=== PATIENT | male | born 1950 | race Caucasian/White ===

== ENCOUNTER 2017-02-02 15:49 | Emergency (ER) | payer OTHER ==
[2017-02-02 17:17] LABS: HEMOGLOBIN 12.2 gm/dl (14.0-17.5); RED BLOOD COUNT 3.03 M/UL (4.20-5.50); WHITE BLOOD COUNT 12.1 K/UL (4.5-11.0)
[2017-02-02 17:32] LABS: BUN/CREATININE RATIO 27 (0-10)
[2017-03-15] MEDS ORDERED: ZOCOR20 MG PO (20:14)
[2017-03-15] MEDS ORDERED: ZYLOPRIM 100 M100 MG PO (20:15)
[2017-03-15] MEDS ORDERED: ASPIR 8181 MG PO (20:15)
[2017-03-15] MEDS ORDERED: NORVASC 5 MG TAB5 MG PO (20:15)
[2017-03-15] MEDS ORDERED: VITAMIN B-1000 MCG/M SQ (20:16)
[2017-03-15] MEDS ORDERED: FAMOTIDINE20 MG PO (20:16)
[2017-03-15] MEDS ORDERED: LASIX 40 MG TAB40 MG PO (20:17)
[2017-03-15] MEDS ORDERED: AMARYL1 MG PO (20:17)
[2017-03-15] MEDS ORDERED: HYDREA CAP 500500 MG PO (20:18)
[2017-03-15] MEDS ORDERED: HYDRALAZINE HCL50 MG PO (20:18)
[2017-03-15] MEDS ORDERED: LEVOTHYROXINE50 MCG PO (20:19)
[2017-03-15] MEDS ORDERED: IMDUR ER TAB 3030 MG PO (20:19)
[2017-03-15] MEDS ORDERED: GLUCOPHAGE1000 MG PO (20:20)
[2017-03-15] MEDS ORDERED: PRINIVIL20 MG PO (20:20)
[2017-03-15] MEDS ORDERED: TOPROL XL100 MG PO (20:20)
[2017-03-15] MEDS ORDERED: COUMADIN 1MG TAB1 MG PO (20:21)
[2017-03-21] MEDS ORDERED: NORCO 5-325 TA1 EACH PO (09:54)
== END 2017-02-02 22:15 | disposition short-term general hospital (02) ==
LOC: ER1 15:49 → ZEROF 19:06 → ER1 22:15
PROVIDERS: Emergency Medicine
DX: S22.089A Unspecified fracture of T11-T12 vertebra, initial encounter for closed fracture (principal); S52.572A Other intraarticular fracture of lower end of left radius, initial encounter for closed fracture; I48.91 Unspecified atrial fibrillation; I11.0 Hypertensive heart disease with heart failure; I50.9 Heart failure, unspecified; C95.90 Leukemia, unspecified not having achieved remission; E03.9 Hypothyroidism, unspecified; J18.9 Pneumonia, unspecified organism; G47.33 Obstructive sleep apnea (adult) (pediatric); M10.9 Gout, unspecified; E78.5 Hyperlipidemia, unspecified; Z95.810 Presence of automatic (implantable) cardiac defibrillator; Z86.718 Personal history of other venous thrombosis and embolism; Z95.5 Presence of coronary angioplasty implant and graft; W18.39XA Other fall on same level, initial encounter; Z79.82 Long term (current) use of aspirin; Z79.84 Long term (current) use of oral hypoglycemic drugs; Z79.899 Other long term (current) drug therapy
CPT/HCPCS: 36415; 36600; 70450; 71250; 72125; 72128; 72131; 73110; 73130; 80053; 82550; 82553; 82803; 83605; 83874; 83880; 84484; 85025; 85610; 85730; 87040; 93005; 96361; 96374; 96375; 99285; J0696; J1940; J2270; J7050